=== PATIENT | female | born 1980 | race Caucasian/White ===

== ENCOUNTER 2020-08-16 22:20 | Emergency (ER) | payer MEDICAID ==
[2020-08-16] MEDS ORDERED: Bacitracin Oint 1 GM U/D Packet TOP ONE (22:58)
[2020-08-16] MEDS ORDERED: Diphtheria,Pertussis(Acell),Tetanus Vaccine 0.5 ML Syringe IM ONE (22:59)
--- NOTE | 2020-08-16 23:21 | EDM.PDOC ---
ED HPI GENERAL MEDICAL PROBLEM - General Chief Complaint: Laceration Stated Complaint: CUT THOMB Time Seen by Provider: 08/16/20 22:58 Source of Information: Reports: Patient History Limitations: Reports: No Limitations - History of Present Illness INITIAL COMMENTS - FREE TEXT/NARRATIVE: Roberta is a 39-year-old female presenting to the ED for evaluation of a laceration on the dorsal aspect of her left thumb just distal to the DIP. The patient was cutting a shower surround with a utility knife and the blade slipped causing the laceration to the thumb. Bleeding was fairly heavy initially but it is controlled in the ED. The laceration measures about 2.4 cm. She has intact flexion and extension of the thumb without loss of sensation. It spares the nailbed. The patient's last tetanus was in 2013 so this will need to be booster today. left thumb Pain Score (Numeric/FACES): 8 - Related Data Allergies Allergy/AdvReac Type Severity Reaction Status Date / Time No Known Allergies Allergy Verified 08/16/20 22:47 Home Meds: Home Meds metFORMIN [Glucophage XR] 500 mg PO QID 08/16/20 [History] Past Medical History Endocrine/Metabolic History: Reports: Diabetes, Type II - Past Surgical History Musculoskeletal Surgical History: Reports: Carpal Tunnel, Other (See Below) Other Musculoskeletal Surgeries/Procedures:: left knee tendon repair Social & Family History - Tobacco Use Tobacco Use Status *Q: Never Tobacco User ED ROS GENERAL - Review of Systems Review Of Systems: See Below Skin: Reports: Wound, Other (Laceration on the dorsal aspect of the left thumb distal to the DIP.) Neurological: Reports: No Symptoms. Denies: Numbness, Tingling, Weakness ED EXAM, SKIN/RASH Exam: See Below Exam Limited By: No Limitations General Appearance: Alert, No Apparent Distress Extremities: Other (2.4 cm laceration on the dorsal aspect of the distal left thumb just distal to the DIP. Range of motion of the DIP is intact. Normal sensation distal to the laceration. No involvement of the nailbed.) Neurological: Alert, Oriented, Normal Cognition, No Motor/Sensory Deficits ED SKIN PROCEDURES - Laceration/Wound Repair Left Distal Digit - 1st (Thumb) Appearance: Subcutaneous Distal NVT: Neuro & Vascular Intact Anesthetic Type: Local Local Anesthesia - Lidocaine (Xylocaine): 1% Plain Local Anesthetic Volume: 3cc Skin Prep: Saline Exploration/Debridement/Repair: Wound Explored, In a Bloodless Field, Explored to Base Closed with: Sutures Lac/Wound length In cm: 2.4 Suture Size: 4-0 # of Sutures: 4 Suture Type: Nylon, Interrupted Sterile Dressing Applied: Provider Tetanus Status Addressed: Yes Complications: No Course - Vital Signs Last Recorded V/S: Last Vital Signs Temp 36.6 C 08/16/20 22:48 Pulse 98 08/16/20 22:48 Resp 16 08/16/20 22:48 BP 136/94 H 08/16/20 22:48 Pulse Ox 100 08/16/20 22:48 - Orders/Labs/Meds Orders: Active Orders 24 hr Category Date Time Status Vaccines to be Administered [RC] PER UNIT ROUTINE Care 08/16/20 22:59 Ordered Bacitracin [Bacitracin Oint 1 GM] Med 08/16/20 22:58 Once 1 dose TOP ONETIME ONE Diphth,Pertuss(Acell),Tet Vac [Boostrix] Med 08/16/20 22:59 Once 0.5 ml IM .ONCE ONE Lidocaine 1% [Xylocaine-MPF 1%] Med 08/16/20 22:58 Once 5 ml INJECT ONETIME ONE - Re-Assessments/Exams Free Text/Narrative Re-Assessment/Exam: 08/16/20 23:24 the wound was cleansed using saline. The wound was explored and no foreign body was present. I anesthetized the wound using lidocaine 1% requiring 3 cc. The wound was then closely approximated using 4-0 Ethilon requiring 4 simple interrupted sutures. A light coating of bacitracin was applied and over this and [employer] dressing and tube gauze was placed. Patient tolerated the procedures without incident. Indications to return to the ED were discussed. The sutures need to be removed in 10 days. All questions were answered prior to discharge. Tetanus status was addressed and she was boosted today. Departure - Departure Time of Disposition: 23:21 Disposition: Home, Self-Care 01 Clinical Impression: Laceration of left thumb Qualifiers: Encounter type: initial encounter Damage to nail status: without damage Foreign body presence: without foreign body Qualified Code(s): S61.012A - Laceration without foreign body of left thumb without damage to nail, initial encounter - Discharge Information Instructions: Sutures, Ender, or Adhesive Wound Closure, [id number], Laceration Care, Adult, [id number] Referrals: PCP,None [Primary Care Provider] - Care Plan Goals: Please watch for any signs of infection. This would include increased redness, increased pain, increased temperature and purulent discharge. If any of these develop please let us know right away so we can start antibiotics. The sutures need to be removed in 10 days. Keep the wound clean and dry for the next 24 hours. After that time you can remove the tube gauze dressing and just apply a Band-Aid. Sepsis Event Note (ED) - Evaluation Sepsis Screening Result: No Definite Risk - Focused Exam Vital Signs: Vital Signs Temp Pulse Resp BP Pulse Ox 08/16/20 22:48 36.6 C 98 16 136/94 H 100 08/16/20 22:42 36.6 C 98 16 136/94 H 100 - Problem List & Annotations (1) Laceration of left thumb SNOMED Code(s): 95764773305890531 Code(s): S61.012A - LACERATION W/O FB OF LEFT THUMB W/O DAMAGE TO NAIL, INIT Status: Acute Priority: Medium Current Visit: Yes Qualifiers: Encounter type: initial encounter Damage to nail status: without damage Foreign body presence: without foreign body Qualified Code(s): S61.012A - Laceration without foreign body of left thumb without damage to nail, initial encounter - Problem List Review Problem List Initiated/Reviewed/Updated: Yes - My Orders Last 24 Hours: My Active Orders 08/16/20 22:58 Bacitracin [Bacitracin Oint 1 GM] 1 dose TOP ONETIME ONE Lidocaine 1% [Xylocaine-MPF 1%] 5 ml INJECT ONETIME ONE 08/16/20 22:59 Vaccines to be Administered [RC] PER UNIT ROUTINE Diphth,Pertuss(Acell),Tet Vac [Boostrix] 0.5 ml IM .ONCE ONE - Assessment/Plan Last 24 Hours: My Active Orders 08/16/20 22:58 Bacitracin [Bacitracin Oint 1 GM] 1 dose TOP ONETIME ONE Lidocaine 1% [Xylocaine-MPF 1%] 5 ml INJECT ONETIME ONE 08/16/20 22:59 Vaccines to be Administered [RC] PER UNIT ROUTINE Diphth,Pertuss(Acell),Tet Vac [Boostrix] 0.5 ml IM .ONCE ONE
== END 2020-08-16 23:33 | disposition home or self-care (01) ==
LOC: JP.ED 22:20
DX: S61.012A Laceration without foreign body of left thumb without damage to nail, initial encounter (principal); E11.9 Type 2 diabetes mellitus without complications; Z79.84 Long term (current) use of oral hypoglycemic drugs; Z23 Encounter for immunization; W26.0XXA Contact with knife, initial encounter
CPT/HCPCS: 12001; 90471; 90715; 99282-25; 99283

== ENCOUNTER 2021-07-27 19:08 | Emergency (ER) | payer MEDICAID | END 2021-07-27 21:17 | disposition home or self-care (01) | LOC: JP.ED 19:08 | DX: S42.142A Displaced fracture of glenoid cavity of scapula, left shoulder, initial encounter for closed fracture (principal); S83.011A Lateral subluxation of right patella, initial encounter; E11.9 Type 2 diabetes mellitus without complications; Z79.84 Long term (current) use of oral hypoglycemic drugs; W19.XXXA Unspecified fall, initial encounter | CPT/HCPCS: 73030-26-LT; 73030-LT; 99282; 99283 ==